=== PATIENT | male | born 1950 | race Caucasian/White ===

== ENCOUNTER 2016-07-01 02:59 | Inpatient (IN) | payer BC, MEDICARE ==
--- NOTE | ~2016-07-01 | CT16 ---
[facility] A Service [facility] RADIOLOGY TEXT RESULTS PATIENT: GLEN COE LOCATION: [facility] 241-01 : 49 UNIT #: [id number] AGE: [address]: TASHA GODOY MD SEX: M ORDER DR: [id number] [place] [id number] [facility]. [place], [place] [address] [id number] I MR#: [id number] Acc #: [id number] NAME: GLEN COE. : 1950 SEX: M STUDY DATE/TIME: 07/01/2016 5:47 UNIT: [facility] ROOM: [facility] STUDY DESCRIPTION: CT Angio Chest for PE Attending Physician: Tasha Godoy M.D. Ordering Physician: Krishna Ford D.O. Primary Care Physician: Glen Madera M.D. MEDICAL IMAGING REPORT This report is preliminary unless electronic signature is present EXAM CT scan of the chest with pulmonary embolus protocol HISTORY Shortness of air a few weeks ago which has gotten worse this morning. COMPARISON 04/27/2016 TECHNIQUE The patient was given 100 mL of Isovue-370. Spiral imaging was performed through the chest. 3-D reconstructions of the pulmonary arteries were generated. This CT exam was performed with one or more of the following radiation dose reduction techniques: automatic exposure control, adjustment of mA and/or kV according to patient size, and iterative reconstruction. FINDINGS There is some biapical fibrotic change which is stable from the prior study. There was some faint left lower lobe lateral infiltrate which is resolved. The lungs are otherwise clear. The thyroid gland is normal. The aorta is normal in size. There is no mediastinal or hilar adenopathy or dissection. The pulmonary arteries are optimally opacified and there is no CT evidence of pulmonary embolus. The visualized portions of the upper abdomen show multiple small calcified gallstones. The bones are unremarkable. IMPRESSION 1. No CT evidence of pulmonary embolus or aortic dissection. 2. Multiple small calcified gallstones. 3. Stable biapical fibrosis. [facility] A Service [facility] RADIOLOGY TEXT RESULTS PATIENT: GLEN COE LOCATION: [place] [address] : [birth year] UNIT #: [id number] AGE: [address]: TASHA GODOY MD SEX: M ORDER DR: Dictated by... Jose Zaman M.D. THIS IS AN ELECTRONICALLY VERIFIED REPORT Jose Zaman M.D. at 07/01/2016 10:24 AM ALONDRA/elaine TD: 07/01/2016 08:51 JOB #: [id number] MEDICAL IMAGING REPORT COPY
--- NOTE | ~2016-07-01 | HP ---
Unit #: [id number] #: [id number] Patient: GLEN MIRANDA [id number] [address] [place], [place] [address] [id number] I MR#: [id number] NAME: GLEN MIRANDA. ROOM: 241 Age: 66 Sex: M Admission Date: 07/01/2016 : 1950 Attending Physician: Demario Godoy M.D. Primary Care Physician: Glen Madera M.D. HISTORY AND PHYSICAL HISTORY Mr. Miranda is a 66-year-old white male, well known to [place], with severe COPD, chronic respiratory failure, maintained on multiple bronchodilators and Trilogy noninvasive ventilation nocturnally. He was admitted to [facility] May 30 through June 20 for exacerbation of COPD, acute and chronic respiratory failure, coronary artery disease with systolic heart failure, postural hypotension and episodes of, I believe, paroxysmal atrial fibrillation. He was discharged to [facility] after he had to petition his insurance company to go to rehab. He did well there until the day before yesterday when he noted he became more short of breath. His sats were 89%. He apparently told them that he was worse. By the last evening, he was much worse and was transported to the emergency room. He had a small amount of sputum production. No fever, chills or sweats. No chest pain. He did have chest tightness. He had been off prednisone. He had not noted any lower extremity edema. In the emergency room his arterial blood gases revealed a pH of 7.47, pCO2 of 46, pO2 of 69 on 4 liters, his normal oxygen flow. His chest CT scan showed no pulmonary embolus, no acute infiltrate. Chest x-ray showed no acute infiltrate. It did show emphysematous changes bilaterally. Chemistries - Potassium was 3.2, CO2 32. BNP was 204. Cardiac enzymes were negative. PT and INR were not drawn. White blood cell count was 6,800, hematocrit was 28.2. Last hematocrit was 27.7 on June 18, and it ranged in that area since the . Influenza screen was negative. PAST MEDICAL HISTORY 1. COPD. 2. Chronic respiratory failure. 3. Ischemic cardiomyopathy, ejection fraction 25%. 4. Status post coronary artery bypass grafting and PCIs by Dr. Cole. 5. History of hypertension. 6. Hyperlipidemia. 7. Steroid-induced diabetes. 8. Dodd esophagus. 9. Partial colectomy for diverticular disease. 10. Inguinal hernia repair. 11. Fissure repair. 12. Cataract extraction. ALLERGIES None. HOME MEDICATIONS Unit #: [id number] #: [id number] Patient: GLEN MIRANDA, Paxil, Colace, aspirin, Plavix, Protonix, Daliresp, ProAmatine, Carafate, DuoNeb, Xanax, probiotic, Guaifenesin, Ditropan, Betapace, budesonide nebulizer, Perforomist nebulizer, Lanoxin, Lipitor, Zofran, bisacodyl, Dulcolax, Milk of Magnesia, MiraLAX. FAMILY HISTORY Positive for coronary artery disease. SOCIAL HISTORY Had been living with his . Stopped smoking 10 years ago. Accumulated 60 pack-year history of smoking. Occasional alcohol. Had been residing at [facility]. REVIEW OF SYSTEMS CONSTITUTIONAL: No fevers, chills. HEENT: No rhinorrhea or nasal congestion. PULMONARY: As noted. CARDIAC: No chest pain or palpitations. GI: No nausea or vomiting. : No hematuria or dysuria. ENDOCRINE: The history of stress-induced diabetes mellitus. NEUROLOGIC: No unilateral weakness or numbness. SKIN: No rash. MUSCULOSKELETAL: No significant back pain. PHYSICAL EXAMINATION GENERAL: White male in no distress. VITAL SIGNS: Blood pressure is 137/87, pulse 116, respiratory rate 17, afebrile. HEENT: Normocephalic, atraumatic. Pupils are equal, round and reactive. Sclerae nonicteric. Nasal passages are patent. Posterior pharynx clear. Poor dentition. NECK: Neck is supple. Trachea midline. No cervical, supraclavicular lymphadenopathy. RESPIRATORY: Lungs revealed diminished breath sounds and prolonged expiratory phase, mild expiratory wheeze, poor airflow. CARDIAC: Regular rate and rhythm. Could not appreciate murmur, rub or gallop. ABDOMEN: Nontender. Bowel sounds present. No hepatosplenomegaly. EXTREMITIES: Without clubbing, cyanosis or edema. Homans sign negative. No cords palpated. NEUROLOGIC: Awake, alert and oriented x3. Cranial nerves intact. Muscle strength is symmetric bilaterally. PSYCHIATRIC: Affect calm. IMPRESSION 1. Acute exacerbation of COPD. 2. Acute on chronic respiratory failure. 3. Ischemic cardiomyopathy, ejection fraction 35%. 4. History of paroxysmal atrial fibrillation, on Coumadin, with subtherapeutic ProTime. 5. History of postural hypotension. PLAN 1. Inhale bronchodilators. 2. IV Solu-Medrol. 3. Cover with antibiotics. 4. Will check ProTime. Unit #: [id number] #: [id number] Patient: GLEN MIRANDA 5. Continue home medications. 6. Further recommendations pending this. Dictated by Keith Andrade/michele TD: 07/01/2016 09:48 JOB #: [id number] HISTORY AND PHYSICAL X Jose Rafael Godoy MD X HISTORY AND PHYSICAL
--- NOTE | ~2016-07-01 | HP ---
Unit #: [id number] #: [id number] Patient: GLEN COE [id number] [address] [address] [id number] I MR#: [id number] NAME: GLEN COE. ROOM: 241 Age: 66 Sex: M Admission Date: 07/01/2016 : 1950 Attending Physician: Demario Godoy M.D. Primary Care Physician: Glen Madera M.D. HISTORY AND PHYSICAL ADDENDUM Note that patient was discharged on Coumadin but it was not on his Med Rec form on admission. Will check the protimes and see why he was not on that medication. Dictated by Keith Andrade/winsome TD: 07/01/2016 10:39 JOB #: [id number] HISTORY AND PHYSICAL X Jose Rafael Godoy MD X HISTORY AND PHYSICAL
--- NOTE | ~2016-07-01 | EKG ---
PATIENT: CHANDNI COE UNIT #: [id number] Ventricular Rate: 123 BPM Atrial Rate: 123 BPM P-R Interval: 190 ms QRS Duration: 80 ms Q-T Interval: 272 ms QTC Calculation(Bezet): 389 ms P [place]: 87 degrees Calculated R [place]: -120 degrees Calculated T [place]: 83 degrees Diagnosis Line: Sinus tachycardia Diagnosis Line: Possible Left atrial enlargement Diagnosis Line: Right superior axis deviation Diagnosis Line: poor R wave progression in precordial leads Diagnosis Line: suggest Pulmonary disease pattern or Anterior PR Diagnosis Line: Abnormal ECG Diagnosis Line: No previous ECGs available Diagnosis Line: Confirmed by LALI CALVILLO MD ([id number]) on 07/01/2016 Diagnosis Line: 5:23:08 PM INTERPRETING MD: RAJINDER MCNEIL
--- NOTE | ~2016-07-01 | CR63 ---
[facility] A Service of [facility] RADIOLOGY TEXT RESULTS PATIENT: CHANDNI COE LOCATION: [facility] 241-01 : [birth year] UNIT #: [id number] AGE: [address]: Jose Rafael Godoy MD SEX: M ORDER DR: [id number] [facility] [address] [place], [place] [address] [id number] I MR#: [id number] Acc #: [id number] NAME: CHANDNI COE. : 1950 SEX: M STUDY DATE/TIME: 07/11/2016 18:02 UNIT: C2A ROOM: 241 STUDY DESCRIPTION: CR Chest 2 View Attending Physician: Jose Rafael Godoy M.D. Ordering Physician: Jose Rafael Godoy M.D. Primary Care Physician: Chandni Madera M.D. MEDICAL IMAGING REPORT This report is preliminary unless electronic signature is present EXAM PA and lateral chest HISTORY Cough, shortness of air, and right chest pain for 2 days. FINDINGS 2 views of the chest demonstrate bilateral pulmonary hyperinflation. The cardiac size and pulmonary vascularity are within normal limits. Sternotomy with mediastinal clips and CABG markers. There is a patchy density in the right lung apex measuring close to 3 cm, apparently new compared to chest x-ray 07/01/2016, and with interval development since chest CT 07/01/2016. Given its rapid development, infectious or inflammatory process is favored. Short-term follow up is recommended to resolution. Mild linear atelectasis in the left lower lung. Calcified mediastinal nodes. Sternotomy and CABG. IMPRESSION 1. A 3 cm patchy density in the right lung apex is new compared to CT and chest x-ray 07/01/2016. Given its rapid development, infectious or inflammatory process is very likely. Short-term follow up chest x-ray is recommended to document resolution. 2. Hyperinflation of both lungs. No additional focal infiltrates. Dictated by... Jeremiah Lima M.D. THIS IS AN ELECTRONICALLY VERIFIED REPORT Jeremiah Lima M.D. at 07/12/2016 3:31 PM DFL/aa TD: 07/12/2016 08:40 [facility] A Service of [facility] RADIOLOGY TEXT RESULTS PATIENT: CHANDNI COE LOCATION: [facility] 241-01 : [birth year] UNIT #: [id number] AGE: [address]: Jose Rafael Godoy MD SEX: M ORDER DR: JOB #: [id number] MEDICAL IMAGING REPORT COPY
--- NOTE | ~2016-07-01 | DS ---
Unit #: [id number] #: [id number] Patient: GLEN COE [id number] [address] [address] [id number] I MR#: [id number] NAME: GLEN COE ROOM: 241 Age: 66 Sex: M Admission Date: 07/01/2016 : 1950 Discharge Date: 07/14/2016 Attending Physician: Jose Rafael Godoy M.D. Primary Care Physician: Glen Madera M.D. DISCHARGE SUMMARY DISCHARGE DIAGNOSES 1. Acute and chronic hypoxemic respiratory failure. 2. Chronic obstructive pulmonary disease exacerbation. 3. Coronary artery disease with ischemic cardiomyopathy, ejection fraction 35%. 4. Postural hypotension. 5. Paroxysmal atrial fibrillation. 6. Hyperlipidemia. 7. Hypertension. 8. Steroid-induced diabetes. 9. Dodd esophagus. 10. History of partial colectomy for diverticular disease. DISCHARGE MEDICATIONS 1. DuoNeb Mini-Neb q.4 hours and p.r.n. 2. Perforomist and Pulmicort nebulizer b.i.d. 3. Florinef 0.1 mg daily. 4. ProAmatine 10 mg t.i.d. 5. Coumadin 5 mg p.o. daily. 6. Paxil 20 mg daily. 7. Xanax 0.5 mg b.i.d. 8. Digoxin 0.125 mg daily. 9. Sotalol 40 mg p.o. b.i.d. 10. Colace stool softener daily. 11. Laxative of choice as needed. 12. Lasix 40 mg p.o. daily. 13. Mucinex 600 mg b.i.d. 14. Ditropan 10 mg p.o. b.i.d. 15. Crestor 5 mg daily. 16. Carafate 1 gram t.i.d. 17. Florastor 250 mg b.i.d. 18. Aspirin 81 mg daily. 19. Plavix 75 mg daily. 20. Protonix 40 mg daily. 21. [place] Nasal [place] as needed. 22. Daliresp 500 mg daily. 23. Imdur ER 60 mg daily. 24. Prednisone 40 mg for 4 days, decreased by 10 mg every 4 days until off. 25. O2 at prescribed level. 26. [facility] COURSE This is a 66-year-old white male, with severe COPD, chronic respiratory Unit #: [id number] #: [id number] Patient: GLEN COE failure - on Trilogy noninvasive nocturnal ventilation, who we were asked to admit to the hospital because of exacerbation of COPD. He has a history of severe COPD, ischemic cardiomyopathy with ejection fraction 30% to 35%, postural hypotension, paroxysmal atrial fibrillation - maintained on Coumadin, hypertension, hyperlipidemia, anxiety and depression. He presented to the emergency room from [facility] because of worsening shortness of breath. Arterial blood gases revealed pH of 7.47, pCO2 of 46, pO2 of [address] scan showed no evidence of pulmonary infiltrate or pulmonary embolus. Chest x-ray showed emphysematous lung haider, flattened diaphragm, no infiltrate. BNP was 204. Cardiac enzymes are negative. ProTime was subtherapeutic. Hematocrit was 28.2, similar to previous hematocrits. Influenza screen was negative. He was admitted, treated with inhaled bronchodilators, IV Solu-Medrol, placed on antibiotics and sliding scale insulin, and continued on his home medications. His Coumadin was resumed. Apparently it had been stopped because of an elevated ProTime. He had very slow improvement. He was maintained on his supplemental oxygen and Trilogy home ventilator. He had gradual clearing of his wheezes, improvement in breathing. We considered readmission to rehab, but he did not wish to do that. He wished to go home. He developed some right-sided chest pain about 4 days prior to discharge. Chest x-ray showed a new right apical density. That was evaluated with a CT scan of the chest, D-dimer and procalcitonin level. Procalcitonin level was less than 0.05. D-dimer was 227, which was in normal range. CT scan of the chest without contrast revealed a new wedge-shaped density in the right lung apex, which had developed since previous CT scan on the . He has remained afebrile. His white count is normal, and he had a normal procalcitonin. It is doubted that this represents a bacterial pneumonia. Does not represent a malignancy, as this appeared too fast. Other possibilities include that of a Nieto hump from possible pulmonary embolus while his dose of Coumadin was being adjusted. His D-dimer was normal, which would argue against it representing a Nieto hump from a pulmonary infarct, but I guess it is possible, or it could be an area of pneumonia that developed after his original CT scan. He is currently therapeutic on Coumadin with a ProTime of 2, and he has received ample antibiotics to cover pneumonia. Therefore, the only followup on this will be a repeat CT scan without contrast in about 3 weeks to ensure clearing. He should have a ProTime checked again in one week. He is to follow up with Dr. Cole per his next appointment and follow up with my office in 3 weeks. He has decided to go with [facility], and they are going to have visiting nurses follow him at home through Dr. Mejía's office. Dictated by... Keith Andrade/michele TD: 07/14/2016 10:30 JOB #: [id number] CC: Sharad Cole M.D. Unit #: [id number] #: [id number] Patient: SARAVANANROHIT DISCHARGE SUMMARY X Jose Rafael Godoy MD X DISCHARGE SUMMARY
--- NOTE | ~2016-07-01 | CR72 ---
[facility] A Service of [facility] RADIOLOGY TEXT RESULTS PATIENT: GLEN COE LOCATION: [facility] : 49 UNIT #: [id number] AGE: [address]: Jose Rafael Godoy MD SEX: M ORDER DR: [id number] [facility] [address] [place], [place] [address] [id number] I MR#: [id number] Acc #: [id number] NAME: GLEN COE. : 1950 SEX: M STUDY DATE/TIME: 07/01/2016 2:21 UNIT: [facility] ROOM: [facility] STUDY DESCRIPTION: CR Chest Single View Portable Attending Physician: Demario Godoy M.D. Ordering Physician: Krishna Ford D.O. Primary Care Physician: Glen Madera M.D. MEDICAL IMAGING REPORT This report is preliminary unless electronic signature is present EXAM Chest x-ray 07/01/2016 at 02:31 hours. INDICATIONS Shortness of air, cough for 2 weeks, worse this morning. History of coronary artery disease. TECHNIQUE AP portable views of the chest. COMPARISON Compared with 05/29/2016. FINDINGS Cardiac and mediastinal contours are normal. The patient is status post CABG. There is emphysema with some chronic scarring at the left lung base. Granulomatous calcification noted at the left base as well. No acute infiltrates are seen, and there is no pneumothorax. IMPRESSION Emphysema with chronic scarring at the left base. Status post CABG. No acute findings in the chest. Dictated by... Ramo Moon Jr., M.D. THIS IS AN ELECTRONICALLY VERIFIED REPORT Ramo Moon Jr., M.D. at 07/04/2016 7:20 AM RLK/gladys TD: 07/01/2016 08:12 JOB #: [id number] [facility] A Service of [facility] RADIOLOGY TEXT RESULTS PATIENT: GLEN COE LOCATION: [facility] : 49 UNIT #: [id number] AGE: [address]: Jose Rafael Godoy MD SEX: M ORDER DR: MEDICAL IMAGING REPORT COPY
--- NOTE | ~2016-07-01 | A ---
[facility] Nutrition Therapy DATE: 07/12/16 Patient: CHANDNI COE Physician: MELISSA Address: [address] [place] [address] Room/Bed: [address] [place] [address], Zip: [place] [address] Admit Date: 07/01/16 Date of : 49 Height: 5 10 Weight: 150 68.3 NUTRITIONAL ASSESSMENT: REASON: Assessed due to length of stay Admitting Dx: 66 y/o male admitted with SOA PMH: severe COPD, chronic respiratory failure, HTN, HLD, cardiomyopathy, steroid-induced diabetes, diverticular disease, Dodd's esophagus Anthropometrics: Ht: 70", admission wt: 153 lbs, no updated weight, BMI: 22 Labs: Glucose POC 126-242, no other recent labs Meds: Carafate, PPI, Furosemide, bowel regimen, Solu-Medrol, Levaquin, Coumadin, Novolog (low SSI) I/O & Bowel function: LBM 3/5, WDL Skin Integrity: WDL, no edema Assessment: Chart reviewed, events noted. Patient being assessed due length of stay, RD previously assessed this year on 06/09/16 due to LOS. Patient does has hx of decreased appetite but tries to eat small, frequent meals. His weight tends to fluctuate by ~10 lbs or so, current weight 7 lbs less than previous admission. He is on 3L nasal cannula, healthy heart diet. Reports consuming 75-100% of meals TID and snacks prn, no chewing/swallowing difficulties, states he did not order lunch today because he is supposed to go down for CT scan. Reports no questions related to diet, see recs below. Dx: No nutrition dx Intervention: None at this time Monitoring, Evaluation and Goals: Continue adequate oral intake 50-100% of meals. Recommendations: Continue healthy heart diet, no nutrition interventions needed at this time. Respectfully, [facility] Nutrition Therapy DATE: 07/12/16 Patient: CHANDNI COE Physician: MELISSA Address: [address] [facility] Room/Bed: [address] [place] [address], Zip: [place] [address] Admit Date: 07/01/16 Date of : [birth year] Height: 5 10 Weight: 150 68.3 Carmelina Manhattan, RD, LD [employer] [facility] [place] [facility] cc: client file
--- NOTE | ~2016-07-01 | CT57 ---
[facility] A Service of [facility] RADIOLOGY TEXT RESULTS PATIENT: GLEN COE LOCATION: [facility] 241 : 49 UNIT #: [id number] AGE: [address]: Jose Rafael Godoy MD SEX: M ORDER DR: [id number] [place] [id number] [facility]. [place], [place] [address] [id number] I MR#: [id number] Acc #: [id number] NAME: GLEN COE. : 1950 SEX: M STUDY DATE/TIME: 07/12/2016 14:50 UNIT: [facility] ROOM: [facility] STUDY DESCRIPTION: CT Chest Wo Cont Attending Physician: Jose Rafael Godoy M.D. Ordering Physician: Jose Rafael Godoy M.D. Primary Care Physician: Glen Madera M.D. MEDICAL IMAGING REPORT This report is preliminary unless electronic signature is present EXAM CT of the chest without contrast. DATE OF EXAM 07/12/2016 INDICATIONS 66-year-old male with shortness of breath and dyspnea for 2 weeks and constant cough. TECHNIQUE CT of the chest was performed without contrast. Coronal and sagittal reformatted images were obtained. NOTE: This CT exam was performed with one or more of the following radiation dose reduction techniques: automatic exposure control, adjustment of mA and/or kV according to patient size, and iterative reconstruction. COMPARISON Comparison with chest CT from 07/01/2016. FINDINGS There has been interval development of a wedge-shaped area of consolidation in the right lung apex suspicious for an infectious or inflammatory process given its rapid development. Follow up to clearing is suggested. There is stable scarring elsewhere in the lung apices. Stable emphysema. No other new infiltrates. No suspicious pulmonary nodule. No lymphadenopathy. Prior sternotomy and CABG. No pleural effusion. Limited imaging of the upper abdomen demonstrates cholelithiasis. The bone windows are unremarkable. IMPRESSION There is a new wedge-shaped area of consolidation in the right lung apex which has developed since the most recent study from last month. This is [facility] A Service of [facility] RADIOLOGY TEXT RESULTS PATIENT: GLEN COE LOCATION: [facility] 241-01 : [birth year] UNIT #: [id number] AGE: [address]: Jose Rafael Godoy MD SEX: M ORDER DR: suspected to represent pneumonia. Follow up to clearing is recommended. Dictated by... Hudson Rajan M.D. THIS IS AN ELECTRONICALLY VERIFIED REPORT Hudson Rajan M.D. at 07/13/2016 3:36 PM NAVIN/indra TD: 07/12/2016 21:55 JOB #: [id number] MEDICAL IMAGING REPORT COPY
[2016-07-01 02:20] LABS: ARTERIAL BLD GAS O2 SATURATION 93.8 % (90.0-100.0); ARTERIAL BLOOD GAS CARBOXY HB 1.5 %sat (0.0-9.0); ARTERIAL BLOOD GAS HCO3 32.1 mmol/L; ARTERIAL BLOOD GAS MET HB 0.5 %sat (0.0-2.0); ARTERIAL BLOOD GAS PCO2 46.5 mmHg (35.0-45.0); ARTERIAL BLOOD GAS pH 7.447 (7.350-7.450)
[2016-07-01 02:21] LABS: ARTERIAL BLOOD GAS ALLEN TEST NORMAL; ARTERIAL BLOOD GAS ART SITE LEFT RADIAL; ARTERIAL BLOOD GAS DELIVERY NASAL CANNULA; ARTERIAL BLOOD GAS PO2 69.4 mmHg (80.0-100); ARTERIAL DRAW? YES
[2016-07-01 02:40] LABS: POC - CKMB <1.0 ng/mL (0.0-7.9); POC - TROPONIN <0.05 ng/mL (<=0.05)
[2016-07-01 02:58] LABS: BASOPHIL% 0.2 % (0-2.5); EOSINOPHIL% 0.3 % (0.0-7.0); HEMATOCRIT 28.2 % (38.0-50.0); HEMOGLOBIN 9.5 gm/dL (13.0-16.0); LYMPHOCYTE# 0.8 X10e3 (1.0-3.5); LYMPHOCYTE% 11.9 % (17.0-45.0); MEAN CELL VOLUME 85.1 FL (83-96); MEAN CORPUSCULAR HEMOGLOBIN 28.6 PG (28-34); MEAN CORPUSCULAR HGB CONC 33.7 g/dL (30-36); MEAN PLATELET VOLUME 6.5 FL (6.5-11.5); MONOCYTE# 1.3 X10e3 (0-1.0); MONOCYTE% 19.9 % (3.0-12.0); NEUTROPHIL# 4.6 X10e3 (1.5-7.1); NEUTROPHIL% 67.7 % (40-75); PLATELET COUNT 179 X10e3 (140-420); RED BLOOD COUNT 3.32 X10e (3.90-5.60); RED CELL DISTRIBUTION WIDTH 15.5 % (11.0-15.5); WHITE BLOOD COUNT 6.8 X10e3 (4.0-10.5)
[~2016-07-01 02:59] MED LIST: ACETAMINOPHEN325 MG PO; ADVAIR 2501 DISK W/D; ADVAIR 2501 DISK W/D PO; ALDACTONE PO; ALDACTONE25 MG PO; ALPRAZOLAM PO; ALPRAZOLAM0.25 MG PO; ASPIRIN; ASPIRIN EC81 M1 PO; ASPIRIN PO; ASPIRIN81 M2 PO; ASPIRIN81 MG PO; ASTEPRO205.5 MCG/; BETAPACE PO; BISACODYL EC5 M2 PO; BUDESONIDE0.25 MG/1 INH; BUDESONIDE0.5 MG/2 M IH; CARAFATE PO; CARAFATE1 G PO; CARAFATE1 GM PO; CARVEDILOL3.125 MG PO; CARVEDILOL6.25 MG PO; CEFTIN; CLARITIN10 M3 PO; CLOPIDOGREL75 MG PO; COMBIVENT INH14.7 GM INH; COMBIVENT MININEB INH; COMBIVENT RESPIM4 GM IH; COMBIVENT RESPIM4 GM INH; COREG PO; COREG3.125 M1 PO; COREG3.125 MG PO; COREG6.25 M1 PO; COUMADIN PO; COUMADIN2.5 MG PO; COUMADIN5 MG PO; COZAAR25 MG PO; CRESTOR PO; CRESTOR5 MG PO; DALIRESP500 MCG PO; DIGITEK125 MC1 PO; DIGOX0.125 MG PO; DITROPAN PO; DITROPAN5 MG PO; DOCUSATE SODIU100 MG PO; DOXYCYCLINE HY100 M3 PO; DULCOLAX10 MG/SUPP PR; DUONEB 2.5-0.5 M3 ML NEB; ENEMEEZ283 MG/EN1 PR; FLOMAX0.4 MG PO; FLONASE 0.05% N16 G1; FLORASTORKIDS250 MG PO; FLORINEF0.1 M1 PO; FLOVENT HFA12 GM INH; FORMOTEROL; FUROSEMIDE40 MG PO; GUAIFENESIN600 MG PO; HUMIBID-LA600 MG PO; IMDUR PO; IMDUR-ER30 M1 PO; IPRAT-ALBUT 0.5-3 ML INH; IPRATR-ALBUTEROL3 ML IH; IPRATR-ALBUTEROL3 ML INH; ISOSORBIDE MONO30 M1 PO; LANOXIN PO; LANOXIN125 MCG PO; LASIX; LASIX PO; LAXATIVE10 MG/SUPP PR; LEVAQUIN750 MG PO; LIPITOR PO; LIPITOR40 MG PO; LISINOPRIL PO; LOSARTAN PO; LOSARTAN POTASS50 MG PO; MEDROL DOSEPAK4 MG PO; MILK OF MAGNESIA PO; MIRALAX17 G1 PO; MIRALAX17 GM PO; MIRALAX255 GM PO; MONOPRIL HCT 201 TAB; NITROGLYCERIN0.4 MG SL; NITROLINGUAL12 G1; NITROSTAT0.4 MG SL; OXYGEN; OXYGEN INH; OXYTROL FOR WO1 EACH PO; PAIN & FEVER325 MG PO; PANTOPRAZOLE SO40 MG PO; PAROXETINE HCL20 M1 PO; PAXIL PO; PERFOROMIS20 MCG/2 M IH; PERFOROMIS20 MCG/2 M INH; PERI-COLACE PO; PERICOLACE PO; PLAVIX PO; PREDNISONE; PREDNISONE PO; PREDNISONE10 MG; PREDNISONE10 MG PO; PROAMATINE10 MG PO; PROBIOTIC250 MG PO; PROTONIX PO; PULMICORT0.5 MG/2 M IH; PULMICORT200 MCG/AE INH; ROBITUSSIN COU118 M8 PO; SENNA S TABLET1 TAB PO; SEREVENT D50 MCG/DIS PO; SINGULAIR; STOOL SOFTENER100 M1 PO; TYLOX 5/500 CAP1 CAP PO; XANAX0.5 M1 PO; ZITHROMAX PO; ZOFRAN PO; [UNRECOGNIZED DRUG - OTHER] PO
[2016-07-01 03:01] LABS: DIFF IND NO
[2016-07-01 03:22] LABS: ALBUMIN SERUM 3.3 g/dL (3.5-5.0); ALKALINE PHOSPHATASE 54 U/L (32-92); ALT (SGPT) 18 U/L (10-40); AST (SGOT) 18 U/L (10-42); BILIRUBIN,TOTAL 1.2 mg/dL (0.2-2.0); BLOOD UREA NITROGEN 10 mg/dL (9-23); CALCIUM SERUM 8.4 mg/dL (8.4-10.2); CARBON DIOXIDE 32 mmol/L (22-31); CHLORIDE 96 mmol/L (100-111); CREATININE SERUM 0.8 mg/dL (0.6-1.4); GLOM FILT RATE Estimated ABOVE60 mL/min (>60); GLUCOSE FASTING 88 mg/dL (70-110); POTASSIUM 3.2 mmol/L (3.5-5.1); PROTEIN TOTAL SERUM 6.3 g/dL (6.0-8.3); SODIUM 138 mmol/L (135-145)
[2016-07-01 04:25] LABS: INFLUENZA A NEG (NEG); INFLUENZA B NEG (NEG)
[2016-07-01 04:40] LABS: POC - TROPONIN <0.05 ng/mL (<=0.05)
[2016-07-01 11:02] LABS: INR 1.3; PROTHROMBIN TIME (PATIENT) 13.8 SECONDS (9.6-11.5)
[2016-07-02 06:01] LABS: INR 1.6; PROTHROMBIN TIME (PATIENT) 17.4 SECONDS (9.6-11.5)
[2016-07-02 06:02] LABS: BLOOD UREA NITROGEN 18 mg/dL (9-23); BUN/CREATININE RATIO 25.71; CALCIUM SERUM 8.8 mg/dL (8.4-10.2); CARBON DIOXIDE 34 mmol/L (22-31); CHLORIDE 95 mmol/L (100-111); CREATININE SERUM 0.7 mg/dL (0.6-1.4); GLOM FILT RATE Estimated ABOVE60 mL/min (>60); GLUCOSE FASTING 152 mg/dL (70-110); SODIUM 137 mmol/L (135-145)
[2016-07-03 05:23] LABS: INR 2.5; PROTHROMBIN TIME (PATIENT) 27.8 SECONDS (9.6-11.5)
[2016-07-04 06:29] LABS: INR 3.3; PROTHROMBIN TIME (PATIENT) 36.1 SECONDS (9.6-11.5)
[2016-07-05 05:41] LABS: HEMATOCRIT 28.9 % (38.0-50.0); HEMOGLOBIN 9.6 gm/dL (13.0-16.0); MEAN CELL VOLUME 84.1 FL (83-96); MEAN CORPUSCULAR HGB CONC 33.3 g/dL (30-36); MEAN PLATELET VOLUME 6.3 FL (6.5-11.5); RED BLOOD COUNT 3.44 X10e (3.90-5.60); RED CELL DISTRIBUTION WIDTH 15.1 % (11.0-15.5); WHITE BLOOD COUNT 6.5 X10e3 (4.0-10.5)
[2016-07-05 05:49] LABS: INR 2.4
[2016-07-05 06:16] LABS: BLOOD UREA NITROGEN 23 mg/dL (9-23); BUN/CREATININE RATIO 38.33; CALCIUM SERUM 8.6 mg/dL (8.4-10.2); CARBON DIOXIDE 37 mmol/L (22-31); CHLORIDE 95 mmol/L (100-111); CREATININE SERUM 0.6 mg/dL (0.6-1.4); GLOM FILT RATE Estimated ABOVE60 mL/min (>60); GLUCOSE FASTING 136 mg/dL (70-110); POTASSIUM 4.1 mmol/L (3.5-5.1); SODIUM 136 mmol/L (135-145)
[2016-07-06 05:33] LABS: INR 1.7; PROTHROMBIN TIME (PATIENT) 18.2 SECONDS (9.6-11.5)
[2016-07-07 06:43] LABS: INR 1.3; PROTHROMBIN TIME (PATIENT) 14.3 SECONDS (9.6-11.5)
[2016-07-08 05:52] LABS: INR 1.4; PROTHROMBIN TIME (PATIENT) 14.6 SECONDS (9.6-11.5)
[2016-07-09 05:57] LABS: INR 1.5; PROTHROMBIN TIME (PATIENT) 16.1 SECONDS (9.6-11.5)
[2016-07-10 05:31] LABS: INR 1.8; PROTHROMBIN TIME (PATIENT) 19.2 SECONDS (9.6-11.5)
[2016-07-11 14:31] LABS: PROTHROMBIN TIME (PATIENT) 21.3 SECONDS (9.6-11.5)
[2016-07-12 06:34] LABS: PROTHROMBIN TIME (PATIENT) 21.6 SECONDS (9.6-11.5)
[2016-07-14 06:41] LABS: PROTHROMBIN TIME (PATIENT) 21.9 SECONDS (9.6-11.5)
[2016-07-14] MEDS ORDERED: COUMADIN5 MG PO (16:47)
[2016-07-14] MEDS ORDERED: FUROSEMIDE40 MG PO (16:55)
[2016-07-14] MEDS ORDERED: CRESTOR5 MG PO (16:58)
[2016-07-14] MEDS ORDERED: SODIUM CHLORIDE45 ML (17:02)
[2016-07-14] MEDS ORDERED: IMDUR-ER30 M1 PO (17:03)
[2016-07-14] MEDS ORDERED: PREDNISONE PO (17:06)
[2016-07-14] MEDS ORDERED: PROAMATINE10 MG PO (17:08)
== END 2016-07-14 18:52 | disposition home health service (06) | DRG 189 ==
LOC: CED 02:59 → CEDOF 05:25 → C2A 07:56
PROVIDERS: Emergency Medicine; Internal Medicine
PROC: B32TYZZ Computerized Tomography (CT Scan) of Left Pulmonary Artery using Other Contrast (ICD-10-PCS; principal; 2016-07-01)
PROC: B32SYZZ Computerized Tomography (CT Scan) of Right Pulmonary Artery using Other Contrast (ICD-10-PCS; 2016-07-01)
DX: J96.21 Acute and chronic respiratory failure with hypoxia (principal); I50.22 Chronic systolic (congestive) heart failure; I48.0 Paroxysmal atrial fibrillation; J44.1 Chronic obstructive pulmonary disease with (acute) exacerbation; Z79.01 Long term (current) use of anticoagulants; I95.1 Orthostatic hypotension; E78.5 Hyperlipidemia, unspecified; I10 Essential (primary) hypertension; E09.9 Drug or chemical induced diabetes mellitus without complications; T38.0X5A Adverse effect of glucocorticoids and synthetic analogues, initial encounter; K22.70 Barrett's esophagus without dysplasia; I25.10 Atherosclerotic heart disease of native coronary artery without angina pectoris; I25.5 Ischemic cardiomyopathy; Z98.49 Cataract extraction status, unspecified eye
CPT/HCPCS: 36600; 71010; 71020; 71250; 71275; 80048; 80053; 82308; 82553; 82803; 82947; 83605; 83880; 84484; 85025; 85027; 85379; 85610; 87040; 87804; 93005; 94640; 94664; 94667; 94668; 94760; 97163; 97165; 99285; G8978-GP; G8979-GP; G8980-GP; G8987-GO; G8988-GO; G8989-GO; J1650; J1815; J1956; J2920; Q9967